=== PATIENT | male | born 1965 | race Caucasian/White ===

== ENCOUNTER 2023-01-16 04:55 | Day surgery (SDC) | payer OTHER ==
[2023-01-16] MEDS ORDERED: Lactated Ringers 1,000 ML IV SCH (05:30)
[2023-01-16] MEDS ORDERED: CEFAZOLIN 2 GM-D5W BAG** 2 GM/50 ML ML IV SCH (05:30)
[2023-01-16] MEDS ORDERED: Xylocaine-Mpf 2% 5 Ml Vial ONE (05:47)
[2023-01-16] MEDS ORDERED: Decadron 4 MG INJ ONE (05:47)
[2023-01-16] MEDS ORDERED: Zofran 4 MG/2 ML VIAL ONE (05:47)
[2023-01-16] MEDS ORDERED: DIPRIVAN 200 MG/20 ML IV ONE (05:48)
[2023-01-16 05:50] LABS: Hematocrit 45.9 % (42-50); Hemoglobin 14.9 g/dL (12.5-18.0); Mean Cell Volume 88.3 fL (78-100); Mean Corpuscular Hemoglobin 28.7 pg (26-32); Mean Corpuscular Hgb Concent. 32.5 g/dL (32-36); Mean Platelet Volume 9.4 fL (7.5-11.0); Platelet Count 192 x10^3/uL (150-450); Red Cell Distribution Width 13.2 % (11.5-14.0); White Blood Count 8.3 x10^3/uL (4.0-10.5)
[2023-01-16] MEDS ORDERED: Quelicin Fliptop 200 MG/10 ML ONE (05:52)
[2023-01-16 06:05] LABS: ALBUMIN 4.4 g/dL (3.5-5.0); ALKALINE PHOSPHATASE 75 U/L (38-126); BLOOD UREA NITROGEN 20 mg/dL (9-20); CHLORIDE 105 mmol/L (98-107); Calcium 9.2 mg/dL (8.4-10.2); Carbon Dioxide 28 mmol/L (22-30); Creatinine 1 0.84 mg/dL (0.66-1.25); EST GLOMERULAR FILTRATION RATE > 60.0 ML/MIN; Glucose 107 mg/dL (74-106); Potassium 3.9 mmol/L (3.5-5.1); SGOT/AST 31 U/L (17-59); SGPT/ALT 32 U/L (0-50); SODIUM 144 mmol/L (137-145); Total Protein 7.6 g/dL (6.3-8.2)
[2023-01-16 06:09] LABS: INR 0.94 (0.8-3.0); PROTIME 10.3 SECONDS (9.4-12.5); PTT 24.8 SECONDS (25.1-36.5)
[2023-01-16] MEDS ORDERED: DEXMEDETOMIDINE 80 MCG/20ML-NS IV ONE (06:24)
[2023-01-16] MEDS ORDERED: SUBLIMAZE 100 MCG/2 ML ONE ×2 (06:26→11:04)
[2023-01-16] MEDS ORDERED: Pre-Attached Lta Kit TP ONE (06:27)
[2023-01-16] MEDS ORDERED: Sensorcaine 0.25% 10 ML ONE (06:27)
[2023-01-16] MEDS ORDERED: OFIRMEV 100 ML IV ONE (06:27)
[2023-01-16] MEDS ORDERED: Versed 2 MG/2 ML Injection ONE (06:28)
[2023-01-16] MEDS ORDERED: Naropin 0.5% 30 ML VIAL ONE (06:29)
[2023-01-16] MEDS ORDERED: EXPAREL 133 MG/10 ML VIAL IJ ONE (06:30)
[2023-01-16] MEDS ORDERED: Pepcid 20 MG VIAL IV ONE (06:38)
[2023-01-16] MEDS ORDERED: Epinephrine Preservative Free 1 MG/ML ONE (06:46)
[2023-01-16] MEDS ORDERED: Xylocaine 1% Vial 30 ML PF IJ ONE (07:02)
[2023-01-16] MEDS ORDERED: Marcaine Mpf 0.5% Vial 30 Ml ONE (07:02)
[2023-01-16] MEDS ORDERED: Lactated Ringers 1,000 ML IV ONE (11:11)
--- NOTE | 2023-01-16 11:48 | XRAY ---
Indication: Right ankle arthroscopy with synovectomy, tibiofibular arthrodesis, calcaneal autograft, and lateral ankle stabilization. Intraoperative fluoroscopy provided for 2 minutes 52 seconds. 28 digital spot images submitted for interpretation ultimately demonstrates 3 distal tibia fibula transverse screws and a lateral fixation plate. Correlate with intraoperative findings/report.
[2023-01-16] MEDS ORDERED: ATROPINE SULFATE 1MG ONE (11:52)
[2023-01-16] MEDS ORDERED: ROBINUL ONE (11:52)
[2023-01-16] MEDS ORDERED: Ephedrine Sulfate 50 MG/ML ONE (11:53)
[2023-01-16 13:04] VITALS: O2SAT 93
[2023-01-16 13:31] VITALS: BP 139/78; PULSE 70
--- NOTE | 2023-01-16 15:46 | OP ---
SURGERY DATE: 01/16/2023 SURGERY TIME: 827 PREOPERATIVE DIAGNOSIS: 1. RIGHT ANKLE PAIN. 2. CHRONIC INSTABILITY OF SYNDESMOSIS RIGHT ANKLE. 3. SYNOVITIS OF RIGHT ANKLE JOINT. 4. CHRONIC LATERAL ANKLE INSTABILITY. 5. DIFFICULTY WITH AMBULATION. POSTOPERATIVE DIAGNOSIS: 1. RIGHT ANKLE PAIN. 2. CHRONIC INSTABILITY OF SYNDESMOSIS RIGHT ANKLE. 3. SYNOVITIS OF RIGHT ANKLE JOINT. 4. CHRONIC LATERAL ANKLE INSTABILITY. 5. DIFFICULTY WITH AMBULATION. 6. LOOSE BODY ANKLE. PROCEDURE: 1. Ankle synovectomy, extensive. 2. Removal of loose body arthroscopic. 3. Calcaneal autograft. 4. Tibiofibular arthrodesis. 5. Lateral ankle stabilization. SURGEON: Rom Javed D.P.M. REACTOR FUELING SUPERVISOR: None. ANESTHESIA: General plus a preoperative popliteal and adductor canal block. HEMOSTASIS: Thigh tourniquet set to 300 mm Hg for 110 total tourniquet minutes. ESTIMATED BLOOD LOSS: Less than 10 cc. MATERIALS: A 3-hole 1/3 tubular plate with one 4.0 X 50, one 4.0 X 55, and one 4.0 X 60 fully threaded screws for syndesmotic fusion. 2 cc of StrataGraft plus with calcaneal autograft. [place] [employer] internal brace with 2.9 juggernauts with broadband to 2.9 Quattro Links into fibula and 1.45 juggernaut for Brostrom-Cohen portion of the lateral ankle stabilization. 3-0 Nylon, 4-0 Monocryl, and Suturegards. INJECTABLES: See anesthesia report for details. INDICATIONS: Errol is a very pleasant 57 year-old male who presented to my clinic for a second opinion for an injury that occurred approximately 2 years ago as a result of the patient stepping down a set of stairs and falling forward with his foot folding towards his body. The patient did have a significant amount of pain and was unable to walk for a number of days. He did seek out treatment and did see 2 physicians who diagnosed him with a syndesmotic injury and prescribed him physical therapy. The patient's physician therapy was successful for some of his pain to the peroneus brevis muscle tear which was confirmed through MRI. He was treated conservatively and was provided a Cam boot and transitioned to an air brace. Patient had 8-9 months of physical therapy. However, there was no improvement of the ankle pain past a threshold. The patient still has pain every day and continues to work. However, has been considering options of proceeding forward. An MRI was obtained on 12/14/2022 demonstrating chronic changes from an old high ankle injury with chronic thickening and spurring of the distal tib/fib ligaments as well as the interosseous ligaments. He also did have some indications of lateral ankle chronic thickening of the anterior talofibular ligament and calcaneofibular ligament along with ankle impingement syndrome. At this time, patient would like to proceed with surgical intervention. 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 The patient does have some findings that indicate the lateral instability is something to be addressed consistent with a positive anterior drawer and talar tilt as well as positive Adrian's test to the ankle and pain with external rotation and palpation to the anterior talofibular ligament. At this time, the patient understands all risks, complications, and benefits of surgical intervention including, but not limited to, infection; hematoma; seroma; delayed wound healing; non-wound healing; delayed syndesmotic healing; delayed nonunion; and the fact that this patient will be likely prescribed a bone stimulator; possibility of continued instability; and possibility of continued pain. The patient understands all this and wishes to proceed with surgical intervention. Plenty of time was allowed for the patient to ask questions to the patient's apparent satisfaction. No guarantees were provided as to the outcome. It is with that, we decided to proceed with surgical intervention. PROCEDURE DETAILS: The patient was brought to the OR, placed on the OR table in the supine position after having been given an adductor canal and saphenous block. Following this the patient was transferred to the OR table in the supine position. At this time, general anesthesia was administered until the patient was sedated. The right lower extremity then was prepped and draped in the typical sterile fashion and lowered onto the surgical field. At this time, attention was directed to the right ankle where landmarks were identified, the lateral malleolus, the medial malleolus, and palpable sanford of the ankle joint range of motion. These were marked out and anteromedial and anterolateral portal sites were established. An 18 gauge needle with a 50 cc syringe of lactated Ringer's was introduced to insufflate the joint. At this time, an 11 blade was then utilized to make an incision through the skin. This was then deepened utilizing a mini curved hemostat down until the joint capsule. Once the joint capsule was encountered, insufflation of the fluid was expressed. The trocar and the blunt obturator were then introduced into the site. Obturator was then removed and the camera was then introduced. Lights were turned off and the scope was advanced to the anterolateral aspect of the ankle where another incision was made and deepened utilizing a combination of sharp and blunt dissection so as not to damage the superficial peroneal nerve which could be Prior to this, a well-padded thigh tourniquet was placed and the tourniquet was set to 350 mm Hg. At this time, the leg was prepped and draped in typical sterile fashion and lowered onto the surgical field. At this time, a skin marker was utilized to visualize the incision site for the lateral ankle stabilization which was a linear incision along the longitudinal access of the anterior aspect of the fibula and dipping down to expose the course of the peroneals in order to see the calcaneofibular ligament. At this time, the incision was made utilizing a #10 blade just going through the superficial layer of the skin. A combination of blunt and sharp dissection was performed using dissecting scissors in order to prevent any injury to the neurovascular structures as well as the superficial peroneal nerve which could be directly visualized. At this time, the shaver was introduced. Triangulation was performed and the shaver was then identified in the scope. At this time, an extensive synovectomy took place identifying multiple structures along the way. The anterior/inferior tibiofibular ligament was identified and a low-lying Everett's ligament was debrided. The anterior talofibular ligament was then inspected and deemed to be extremely thickened. From that standpoint, extensive synovectomy was taken and care was taken at the medial gutter. Portal sites were then switched and continued extensive synovectomy was then performed. At this time, a loose body was encountered and removed. The loose body measured approximately 7 mm X 4 mm in length. The incision did have to be made bigger in order to remove the loose body. At this time, the remaining joint was inspected and deemed to be relatively adequate. The camera and trocar as well as the shaver were then removed from the portals. Attention then was directed under fluoroscopic guidance to lateral of the calcaneus and the posterior plantar 1/4 of the calcaneus where a safe margin was established. Incision was made utilizing an 11 blade and deepened utilizing a curved hemostat. A 2 mm drill was utilized to puncture through the lateral wall of the calcaneus. Varying sizes of curettes were then utilized to extract approximately 1 cc of calcaneal autograft. This was handed off the field for later use and mixed with the StrataGraft or the StaGraft plus. From that standpoint, the Esmarch was then utilized to exsanguinate the leg. A linear incision was made at the middle 1/3 of the fibula extending to the sinus tarsi. This was carried down utilizing a combination of blunt and sharp dissection making sure not to damage any neurovascular structures. The superficial peroneal nerve was encountered at the distal aspect of the surgical site and was retracted safely out of the way. Access to the syndesmosis was performed by undermining a full thickness flap of the anterior aspect of the ankle against the bone. Very close to the syndesmosis, the perforating peroneal artery was then identified and protected with a ribbon retractor for the remainder of the case. At this time, extensive scar tissue removal was performed of the syndesmosis where there were obvious signs of chronic inflammation and scar tissue. This was debrided until only bone and cartilage remained. The cartilage at the incisura was then debrided utilizing a curved osteotome. This was then flushed with copious amounts of sterile saline. Following this, a 2-0 mm drill was then utilized to fenestrate the joint surfaces. Following this, curved osteotome was then utilized to fish scale the inner surfaces of both the tibial incisura and the fibula medially and a curette was then utilized to the bone graft and breakdown to the subchondral plate of both surfaces. Following this, the stay graft and autograft were then introduced into the syndesmosis. A 3-hole plate was then introduced at the posterolateral aspect of the fibula and 3 varying size 4.0 mm screws were then introduced tricortically at approximately a 20-30 degree ankle relative to the long axis of the leg. This was checked on multiple views and deemed to be in an adequate position. At this time, the incision was carried down where inspection of the anterior talofibular ligament was performed. A 2 mm cuff was left on the fibular footprint and the anterior talofibular ligament was then resected. Immediately after resecting, there was a significant amount of thickening of this ligament approximately 4-6 mm in thickness that was noted. The thickened portions were debrided. Lateral and AP of the foot of where the talar body meets the talar neck was identified and a 2.9 juggernaut was introduced so as not to damage the posterior facet or any articular surface for that matter. This was introduced and a 2.9 mm Quattro Link was then utilized to stabilize the repair underneath the anterior talofibular ligament being within the capsule of the ankle joint. This was embedded into the footprint of the fibula underneath a cuff of soft tissue at the footprint where the anterior talofibular ligament was resected. At this time, two 1.5 juggernauts were introduced into the footprint of the fibula just proximal and distal to the 2.9 Quattro Link and then a Brostrom-Cohen type procedure was performed bautista up the anterior talofibular ligament and then utilizing the extensor retinaculum to stabilize the construct. The knots repairing the anterior talofibular ligament were buried underneath the cuff of soft tissue at the fibula. All sutures were then cut. The anterior drawer was then performed under fluoroscopic guidance and deemed to be within normal limits with no obvious signs of instability. Final x-rays were taken at this time. Copious amounts of sterile saline were utilized to flush the surgical site. At this time, a 4-0 Monocryl was then utilized to coapt the subcutaneous skin edges in a simple interrupted type fashion. Two suture guards were then utilized utilizing 2-0 Nylon in order to relieve tension off of the sutures and then 3-0 Nylon was utilized to coapt the skin edges in a horizontal mattress type fashion everting the skin edges. The calcaneal autograft entry site was then repaired utilizing a horizontal mattress and some trauma sutures were then utilized to coapt the arthroscopy portal entry sites. Following this, copious amounts of saline were utilized to flush. Then, dry dressing consisting of Betadine, Adaptic, 4 X 4's, Kerlix, and a well-padded posterior splint with sugar tongue was applied to the patient's right ankle. The patient then was reversed from anesthesia and returned to the postoperative anesthesia care unit with vital signs stable and vascular status intact. The patient handled the anesthesia as well as the procedure without significant complication. POSTOPERATIVE ORDERS: As indicated in the patient's chart.
== END 2023-01-16 13:45 | disposition home or self-care (01) ==
LOC: SDC 04:55
PROVIDERS: ATTEND Podiatrist Foot & Ankle Surgery
DX: M65.9 Synovitis and tenosynovitis, unspecified (principal); M25.371 Other instability, right ankle; R26.2 Difficulty in walking, not elsewhere classified; M25.571 Pain in right ankle and joints of right foot; M24.071 Loose body in right ankle
CPT/HCPCS: 20900; 27625; 27698; 27870; 29898; 36415; 73610; 76000; 76937; 80053; 82306; 85027; 85610; 85730; 93005; C1713; J0171; J0330; J0461; J0690; J1100; J2001; J2250; J2405; J2704; J2795; J3010

== ENCOUNTER 2023-08-21 05:46 | Day surgery (SDC) | payer OTHER ==
[2023-08-21] MEDS ORDERED: Epinephrine Preservative Free 1 MG/ML ONE (06:20)
[2023-08-21] MEDS ORDERED: Lactated Ringers 1,000 ML IV SCH (06:30)
[2023-08-21 06:41] LABS: Absolute Neutrophil Ct (ANC) 4.64 x10^3/uL (1.4-6.9); BASOPHIL % 0.6 % (0.0-0.4); Basophil (Absolute #) 0.04 x10^3/uL (0-0.4); Eosinophil % 1.4 % (0.00-5.0); Hematocrit 42.4 % (42-50); IMMATURE GRAN # 0.03 x10^3u/L (0.00-0.03); IMMATURE GRAN % 0.4 % (0.00-0.4); Lymphocyte (Absolute #) 1.64 x10^3/uL (1.0-4.6); Lymphocytes % 23.2 % (24.0-44.0); Mean Cell Volume 89.6 fL (78-100); Mean Corpuscular Hemoglobin 29.6 pg (26-32); Mean Platelet Volume 9.2 fL (7.5-11.0); Monocyte (Absolute #) 0.61 x10^3/uL (0.0-1.3); Monocytes % 8.6 % (0.0-12.0); Neutrophil % 65.8 % (36.0-66.0); Platelet Count 194 x10^3/uL (150-450); Red Blood Count 4.73 x10^6/uL (4.1-5.6); Red Cell Distribution Width 13.1 % (11.5-14.0); White Blood Count 7.1 x10^3/uL (4.0-10.5)
[2023-08-21] MEDS ORDERED: Decadron 4 MG INJ ONE (06:51)
[2023-08-21] MEDS ORDERED: SUBLIMAZE 100 MCG/2 ML ONE (06:51)
[2023-08-21] MEDS ORDERED: DIPRIVAN 200 MG/20 ML IV ONE (06:51)
[2023-08-21] MEDS ORDERED: BRIDION 200MG/2ML IV ONE (06:51)
[2023-08-21] MEDS ORDERED: Zofran 4 MG/2 ML VIAL ONE (06:51)
[2023-08-21] MEDS ORDERED: Zemuron 100 MG/10 ML ONE (06:51)
[2023-08-21] MEDS ORDERED: Xylocaine-Mpf 2% 5 Ml Vial ONE (06:51)
[2023-08-21] MEDS ORDERED: TORAdol 30 mg Injection ONE (06:51)
[2023-08-21 06:52] VITALS: PULSE 71; RESP 18
[2023-08-21] MEDS ORDERED: Naropin 0.5% 30 ML VIAL ONE (06:52)
[2023-08-21] MEDS ORDERED: Marcaine 0.5%/Epinephrine 10 ML ONE (06:52)
[2023-08-21] MEDS ORDERED: Versed 2 MG/2 ML Injection ONE (06:55)
[2023-08-21] MEDS ORDERED: CEFAZOLIN 2 GM-D5W BAG** 2 GM/50 ML ML IV SCH (07:00)
[2023-08-21 07:04] LABS: ALBUMIN 4.4 g/dL (3.5-5.0); ALKALINE PHOSPHATASE 72 U/L (38-126); ANION GAP 13.4 MEQ/L (5-15); BLOOD UREA NITROGEN 24 mg/dL (9-20); CHLORIDE 106 mmol/L (98-107); Calcium 8.7 mg/dL (8.4-10.2); Carbon Dioxide 24 mmol/L (22-30); Creatinine 1 0.73 mg/dL (0.66-1.25); EST GLOMERULAR FILTRATION RATE > 60.0 ML/MIN; Glucose 120 mg/dL (74-106); Potassium 4.3 mmol/L (3.5-5.1); SGOT/AST 41 U/L (17-59); SGPT/ALT 31 U/L (0-50); SODIUM 139 mmol/L (137-145); Total Protein 7.4 g/dL (6.3-8.2)
[2023-08-21] MEDS ORDERED: Ephedrine Sulfate 50 MG/ML ONE (07:57)
[2023-08-21] MEDS ORDERED: Lactated Ringers 1,000 ML IV ONE (08:06)
[2023-08-21] MEDS ORDERED: OFIRMEV 100 ML IV ONE (08:06)
[2023-08-21] MEDS ORDERED: PHENYLEPHRINE HCL ONE (08:12)
[2023-08-21 11:24] VITALS: BP 130/68; TEMP 96.9; O2SAT 96
--- NOTE | 2023-08-24 12:02 | OP ---
SURGERY DATE/TIME: 08/21/2023 0745 PREOPERATIVE DIAGNOSES: 1) Peroneus brevis tenosynovitis and longitudinal tear right ankle. 2) Ankle joint effusion with synovitis. 3) Subtalar joint effusion with synovitis. 4) Right ankle pain. 5) Anterior ankle impingement syndrome with low lying [place]'s ligament. 6) Low lying muscle belly. POSTOPERATIVE DIAGNOSES: 1) Peroneus brevis tenosynovitis and longitudinal tear right ankle. 2) Ankle joint effusion with synovitis. 3) Subtalar joint effusion with synovitis. 4) Right ankle pain. 5) Anterior ankle impingement syndrome with low lying [place]'s ligament. 6) Low lying muscle belly. PROCEDURES: 1) Repair of peroneus brevis tendon with tenosynovectomy, right. 2) Ankle joint arthroscopy with synovectomy. 3) Subtalar joint arthroscopy with complete synovectomy. 4) Resection of low lying muscle belly. SURGEON: Rom Javed DPM. ALLIANCE CONSULTANT: None. ANESTHESIA: General with a preoperative popliteal and saphenous block. HEMOSTASIS: Thigh tourniquet set to 300 mm of Mercury for approximately 35 total tourniquet minutes. ESTIMATED BLOOD LOSS: [id number] cc. MATERIALS: 3-0 PDS, Tapestry [place], 4-0 Monocryl and 3-0 Nylon. INJECTABLES: See anesthesia report for details. INDICATION FOR SURGERY: Errol Marcelo is a very pleasant 58-year-old male well known to our service for a previous syndesmotic fusion. The patient did have a work injury that resulted in instability of the syndesmosis. An MRI was obtained and the index position stated that it was too late to proceed with addressing this issue. As a result the patient did have some delay in this issue being taken care of. He did see another provider who was unwilling to perform the procedure that was necessary and the patient found himself looking for a second opinion and my service. As a result we proceeded with an ankle arthroscopy with a complete synovectomy as well as syndesmosis arthrodesis. He has since done better however his pain has changed. In previous MRI's it did show that there was some improving symptoms of peroneal tendon disorder and lately he has developed some degree of anterior-inferior talofibular ligament impingement at the ankle joint which is causing secondary pain. He also does have some pain over the subtalar joint and as a result has labored on the decision whether or not to proceed with surgical intervention. Given the patient's clearly identifiable issues, these are likely to do well with surgical intervention. However, as with every case there are no guarantees. The patient was consented with the understanding of all risks, complications and benefits of surgical intervention discussed including but not limited to infection, hematoma, seroma, possibility of delayed wound healing, nonwound healing, possibility of failure of surgical intervention and possible need for re-intervention at a late. There have been no guarantees provided as to the outcome of surgical intervention. Plenty of time was allowed for the patient to ask questions which were answered to his apparent satisfaction. At this time we decided to proceed. DESCRIPTION OF PROCEDURE AND FINDINGS: The patient was brought into the postoperative anesthesia care unit where he was provided a popliteal and saphenous block to the right lower extremity. Following this, he was brought into the OR and placed on the OR table in the supine position. Following this general anesthesia was administered until the patient was sedated. A well-padded thigh tourniquet was applied to the patient's right upper thigh and the tourniquet was set to 300 mm of Mercury. The right lower extremity was prepped and draped in the typical sterile fashion and lowered onto the surgical field. At this time, attention was directed to the ankle joint where the previous arthroscopy scars were found to be in adequate position. Arthroscopy took place utilizing 18 gauge needle with 50 cc lactated Ringer's where approximately 20 cc was able to be insufflated into the anterior medial portal allowing for the capsule distention and foot dorsiflexion. Following this an 11 blade was utilized to make an incision at the anterior medial portal and this was carried down utilizing blunt dissection with a curved mini hemostat until insufflation field was identified. The blunt trocar and obturator was introduced. The obturator was removed and the 4 mm 30 degree camera was introduced inspecting the joint. A significant amount of scar tissue was identified at the lateral aspect of the capsule as well as some constricture at the medial aspect. Under direct visualization of the light and making sure not to damage the superficial peroneal nerve, a linear incision was made vertical just dorsal to the joint line and blunt dissection was carried down until once again insufflation fluid was identified. Curved mini hemostat was carried down to the level of the capsule and the shaver was then introduced. Complete synovectomy took place taking note to spend extra time at the anterior-inferior talofibular where clearly there was some capsule tissue that was present and impinging with dorsiflexion of the ankle this was resected and a good majority of the case was spent resecting this and some of the remaining scar tissue within the syndesmosis. The syndesmosis was identified and probed as far as gapping within the syndesmosis I was unable to perform this maneuver indicating successful arthrodesis or least open reduction internal fixation of the syndesmosis. Following this constrictures of the medial aspect of the tibiotalar joint were resected until the joint looked fairly free of any remaining constrictures or synovitis. Most of the synovitis that was encountered was similar to that of crab meat synovitis rather than hemorrhagic synovitis. The scope was withdrawn and the anterior medial portals were exchanged for inspection which was deemed to be sufficient at that time. Attention was directed to the distal tip of the fibula and the tip of the anterior calcaneus. Two stab incisions were made at this level and the subtalar joint arthroscopy took place where the fat plug in the sinus tarsi was first resected. The lateral aspect of the subtalar joint was inspected and deemed to be relatively healthy. However, significant amounts of synovitis was identified at the layer of the capsular tissue this was resected. The joint was run through a range of motion and deemed to be stable with no signs of instability or remaining synovitis following withdrawal of the scope. At this time insufflation fluid was pumped out of the leg manually. Following this the Esmarch was utilized to exsanguinate the leg and the tourniquet was inflated to 300 mm of Mercury. At this time a linear incision was carried down just posterior to the posterior border of the fibula. At this time immediately encountered was the peroneus brevis tear approximately 3 cm from the superior peroneal retinaculum. At this time the amount of tear was deemed to be minimal less than 50% of the total tendon width. This was excised and the tendon was debrided and retubularization took place utilizing 3-0 PDS. Following this a Tapestry was utilized to cover the tendon and prevent any further adhesion surrounding the tendon. With that note the peroneus longus tendon was inspected and deemed to be relatively healthy. The peroneus brevis was removed of its tenosynovium which did appear to be somewhat infected at the same area of the tear. Following this, the lateral compartment was inspected and deemed to be relatively tight, some of the crural fascia was resected to prevent scarring of the fascial layer over the top once again. Any significant constricture in this area was released. There was a low lying muscle belly that was identified within the peroneal groove that when the foot pulled into inversion appeared to delve into the superior peroneal retinaculum this was resected off of the posterior aspect of the peroneus brevis. Following this the incisions were cleansed with copious amounts of sterile saline. 4-0 Monocryl was utilized to coapt the subcutaneous skin edges in a simple buried interrupted-type fashion and 3-0 Nylon utilized to coapt the skin edges in a horizontal mattress-type fashion. The arthroscopy sites were closed utilizing simple interrupted. Following this, a dressing consisting of Betadine, Adaptic, 4x4, Kerlix and RAMON was applied to the patient's right lower extremity. The patient was provided a CAM boot for limited weightbearing. The patient was then reversed from anesthesia and returned to the postoperative anesthesia care unit with vital signs stable and vascular status intact. The patient handled the anesthesia without significant complication. Postoperative orders as indicated in the patient's discharge chart.
== END 2023-08-21 11:20 | disposition home or self-care (01) ==
LOC: SDC 05:46
PROVIDERS: ATTEND Podiatrist Foot & Ankle Surgery
DX: M65.871 Other synovitis and tenosynovitis, right ankle and foot (principal); M25.471 Effusion, right ankle; M25.571 Pain in right ankle and joints of right foot; M25.871 Other specified joint disorders, right ankle and foot; Z79.899 Other long term (current) drug therapy
CPT/HCPCS: 27626; 27659; 29905; 36415; 76937; 80053; 85025; C1713; J0171; J0690; J1100; J1885; J2250; J2371; J2405; J2704; J2795; J3010